=== PATIENT | male | born 1985 | race African-American/Black ===

== ENCOUNTER → 2017-01-25 | Outpatient (CLI) | payer OTHER ==
[2015-11-28 08:58] VITALS: BP 95/65
--- NOTE | 2017-01-25 10:51 | RAD ---
HISTORY: Left thumb pain Study: Three views left hand Comparison: None Findings: Normal alignment. There is a nondisplaced oblique fracture through the distal phalanx of the thumb w ithout intra-articular extension. The remaining osseous structures are intact with normal appearance . There is soft tissue swelling around the distal aspect of the thumb. No radiopaque foreign body i dentified. IMPRESSION: 1. Nondisplaced oblique fracture through the distal phalanx of the thumb. Reported By:
== END | disposition home or self-care (01) ==
LOC: RAD 09:59
PROVIDERS: ATTEND Clinical Nurse Specialist Women's Health
DX: S62.525A Nondisplaced fracture of distal phalanx of left thumb, initial encounter for closed fracture (principal); X58.XXXA Exposure to other specified factors, initial encounter
CPT/HCPCS: 73130

== ENCOUNTER → 2017-02-08 | Outpatient (CLI) | payer OTHER ==
[2015-11-28 08:58] VITALS: BP 95/65
--- NOTE | 2017-02-09 08:20 | RAD ---
HISTORY: Followup left thumb fracture Study: Three views of the left hand Comparison: 01/25/2017 Findings: There is a healing minimally displaced transverse fracture through the distal phalanx of the thumb w ith stable minimal dorsal angulation. The remaining osseous structures are intact with normal alignm ent. There is soft tissue swelling overlying the distal phalanx of the thumb. No radiopaque foreign body. IMPRESSION: 1. Healing fracture of the distal phalanx of the thumb as described. Reported By:
== END ==
LOC: RAD 15:51
PROVIDERS: ATTEND Family Medicine
DX: S62.525A Nondisplaced fracture of distal phalanx of left thumb, initial encounter for closed fracture (principal); X58.XXXA Exposure to other specified factors, initial encounter
CPT/HCPCS: 73130